=== PATIENT | female | born 1955 | race Two or more races ===

== ENCOUNTER 2016-05-25 12:13 | Emergency (ER) | payer MEDICAID ==
[~2016-05-25] VITALS: Ht 154.9 cm; Wt 83.9 kg
[2016-05-25] MEDS ORDERED: SILVER SULFADIAZINE CREAM 25 GM TUBE ONE (13:25)
[2016-05-25] MEDS ORDERED: SILVER SULFADIAZINE CREAM 25 GM TUBE TP ONE (13:30)
[2016-05-25] MEDS ORDERED: ACETAMINOPHEN ES 500 MG TABLET ONE (13:36)
[2016-05-25] MEDS ORDERED: IBUPROFEN 600 MG TABLET PO ONE ×2 (13:37→14:00)
[2016-05-25] MEDS ORDERED: ACETAMINOPHEN 325 MG TABLET PO ONE (14:00)
[2016-05-25 15:03] VITALS: BP 121/84
== END 2016-05-25 15:04 | disposition home or self-care (01) ==
LOC: ER 12:15
DX: T24.212A Burn of second degree of left thigh, initial encounter (principal); T24.211A Burn of second degree of right thigh, initial encounter; M25.512 Pain in left shoulder; M19.90 Unspecified osteoarthritis, unspecified site; X12.XXXA Contact with other hot fluids, initial encounter; Y93.89 Activity, other specified; Y92.89 Other specified places as the place of occurrence of the external cause; Y99.9 Unspecified external cause status
CPT/HCPCS: 16020; 73030; 99284; A4606; Z7610

== ENCOUNTER 2017-03-05 13:14 | Emergency (ER) | payer MEDICAID, OTHER ==
[~2017-03-05] VITALS: Ht 154.9 cm; Wt 46.0 kg
[2017-03-05 13:24] VITALS: BP 148/91
--- NOTE | 2017-03-05 13:50 | NUR ---
pelvic exam done by dr rivera assisted by me
--- NOTE | 2017-03-05 14:06 | NUR ---
Patient discharged to home in stable condition. Written and verbal after care instructions given. Patient verbalizes understanding of instruction.
== END 2017-03-05 14:07 | disposition home or self-care (01) ==
LOC: ER 13:16
DX: N76.0 Acute vaginitis (principal)
CPT/HCPCS: 99283; A4606; Z7610

== ENCOUNTER 2017-12-15 11:17 | Emergency (ER) | payer OTHER ==
[~2017-12-15] VITALS: Ht 154.9 cm; Wt 89.4 kg
[2017-12-15 11:29] VITALS: BP 135/81
[2017-12-15] MEDS ORDERED: IBUPROFEN 600 MG TABLET PO ONE ×2 (12:09→12:30)
== END 2017-12-15 13:55 | disposition home or self-care (01) ==
LOC: ER 11:18
DX: S86.811A Strain of other muscle(s) and tendon(s) at lower leg level, right leg, initial encounter (principal); S80.261A Insect bite (nonvenomous), right knee, initial encounter; W57.XXXA Bitten or stung by nonvenomous insect and other nonvenomous arthropods, initial encounter; Y93.89 Activity, other specified; Y92.89 Other specified places as the place of occurrence of the external cause; Y99.8 Other external cause status
CPT/HCPCS: 73564-TC; A4606; Z7610

== ENCOUNTER 2019-04-12 09:04 | Emergency (ER) | payer OTHER ==
[~2019-04-12] VITALS: Ht 154.9 cm; Wt 86.2 kg
--- NOTE | 2019-04-12 09:18 | NUR ---
CAME IN FOR INTERMITTENT LUQ ABD PAIN X 2 WEEKS, TO ER BED 9, HOOKED TO MONITOR, CHANGED TO HOSP GOWN, PROVIDED W WARM BLANKET, AOx 4, BREATHING EVEN AND UNLABORED, NAD NOTED. AWAITING MD AGUILERA
--- NOTE | 2019-04-12 09:34 | NUR ---
DR US AT BEDSIDE
[2019-04-12 10:14] LABS: BASOPHILS # (AUTO) 0.1 /CMM (0.0-0.2); EOSINOPHILS % (AUTO) 0.1 % (0.0-6.0); HEMATOCRIT 45 % (33-45); HEMOGLOBIN 15.3 g/dL (11.5-14.8); LYMPHOCYTES # (AUTO) 1.8 /CMM (0.8-4.8); LYMPHOCYTES % (AUTO) 28.3 % (20.0-44.0); MEAN CORPUSCULAR HGB CONC 34 g/dl (31.0-36.0); MEAN CORPUSCULAR VOLUME 88 fL (82-100); MONOCYTES # (AUTO) 0.3 /CMM (0.1-1.30); MONOCYTES % (AUTO) 5.1 % (2.0-12.0); NEUTROPHILS # (AUTO) 4.2 /CMM (1.8-8.9); NEUTROPHILS % (AUTO) 65.5 % (43.0-81.0); PLATELET COUNT (AUTO) 453 /CMM (150-450); RED BLOOD CELL COUNT(AUTO) 5.11 MIL/uL (4.0-5.2); WHITE BLOOD COUNT (AUTO) 6.3 K/uL (4.3-11.0)
[2019-04-12 10:25] LABS: CALCIUM, SERUM 9.5 mg/dL (8.5-10.1); CARBON DIOXIDE 29 mmol/L (21-32); CHLORIDE 106 mmol/L (98-107); GLUCOSE 100 mg/dL (74-106); POTASSIUM 4.5 mmol/L (3.5-5.1); SODIUM SERUM 142 mmol/L (136-145); UREA NITROGEN, BLOOD 13 mg/dL (7-18)
[2019-04-12 10:37] LABS: ALANINE AMINOTRANSFERASE 65 U/L (12-78); ALBUMIN 3.4 g/dL (3.4-5.0); ALKALINE PHOSPHATASE 121 U/L (46-116); ASPARTATE AMINOTRANSFERASE 55 U/L (15-37); BILIRUBIN,DIRECT 0.1 mg/dL (0.0-0.2); BILIRUBIN,TOTAL 0.3 mg/dL (0.2-1.0); LIPASE 171 U/L (73-393); TOTAL PROTEIN, SERUM 8.1 g/dL (6.4-8.2)
[2019-04-12] MEDS ORDERED: MAG HYDROX/AL HYDROX/SIMETH 30 ML UDC ONE (10:41)
[2019-04-12] MEDS ORDERED: LIDOCAINE VISCOUS 2% UD 15 ML UDC ONE (10:41)
[2019-04-12 10:54] LABS: APPEARANCE,URINE Clear (CLEAR); BILIRUBIN,URINE Negative (NEGATIVE); BLOOD, URINE Moderate Ery/uL (NEGATIVE); COLOR,URINE Yellow (YELLOW); KETONES,URINE Negative (NEGATIVE); LEUKOCYTE ESTERASE ,URINE Small (NEGATIVE); NITRITE, URINE Negative (NEGATIVE); PH,URINE 8.5 (5.0-8.0); PROTEIN,URINE Negative (NEGATIVE); UGLUCOSE Negative (NEGATIVE); UROBILINOGEN,URINE 0.2 EU/dL (0.2)
[2019-04-12] MEDS ORDERED: MAG HYDROX/AL HYDROX/SIMETH 30 ML UDC PO ONE (11:00)
[2019-04-12] MEDS ORDERED: LIDOCAINE VISCOUS 2% UD 15 ML UDC MM ONE (11:00)
[2019-04-12 11:16] LABS: BACTERIA,URINE Few /HPF (None Seen); SQUAMOUS EPITHELIAL CELL,UR Moderate /HPF (None Seen); WBC,URINE 21-50 /HPF (0-3)
[2019-04-12] MEDS ORDERED: CEPHALEXIN MONOHYDRATE 500 MG CAPSULE PO ONE ×2 (11:58→12:00)
--- NOTE | 2019-04-12 12:05 | NUR ---
IV removed. Catheter intact and site benign. Pressure and 4x4 applied to site. No bleeding noted.Patient discharged to home in stable condition. Written and verbal after care instructions given. Patient verbalizes understanding of instruction.
[2019-04-12 12:07] VITALS: BP 126/68
== END 2019-04-12 12:08 | disposition home or self-care (01) ==
LOC: ER 09:04
DX: N39.0 Urinary tract infection, site not specified (principal); R10.12 Left upper quadrant pain; H61.23 Impacted cerumen, bilateral
CPT/HCPCS: 36415; 80048-TC; 80076-TC; 81000-TC; 83690-TC; 84484-TC; 85025-TC; 87086-TC; 87186-TC

== ENCOUNTER 2024-07-09 08:31 | Emergency (ER) | payer MEDICARE, OTHER ==
[~2024-07-09] VITALS: Ht 152.4 cm; Wt 90.7 kg
[2024-07-09] MEDS: IV NS 0.9% 1,000 ML BAG IV ONE (09:00)
[2024-07-09 09:18] LABS: BASOPHILS # (AUTO) 0.1 K/uL (0.0-0.2); BASOPHILS % (AUTO) 1.1 % (0.0-2.0); EOSINOPHILS # (AUTO) 0.1 K/uL (0.0-0.7); HEMATOCRIT 45 % (33-45); HEMOGLOBIN 14.9 g/dL (11.5-14.8); LYMPHOCYTES # (AUTO) 2.2 K/uL (0.8-4.8); LYMPHOCYTES % (AUTO) 41.8 % (20.0-44.0); MEAN CORPUSCULAR HEMOGLOBIN 29 PG (26.0-33.0); MEAN CORPUSCULAR HGB CONC 33 g/dl (31.0-36.0); MEAN CORPUSCULAR VOLUME 88 fL (82-100); MONOCYTES # (AUTO) 0.3 K/uL (0.1-1.30); MONOCYTES % (AUTO) 6.3 % (2.0-12.0); NEUTROPHILS # (AUTO) 2.6 K/uL (1.8-8.9); NEUTROPHILS % (AUTO) 49.8 % (43.0-81.0); PLATELET COUNT (AUTO) 279 K/uL (150-450); RED BLOOD CELL COUNT(AUTO) 5.12 MIL/uL (4.0-5.2); WHITE BLOOD COUNT (AUTO) 5.3 K/uL (4.3-11.0)
[2024-07-09 09:19] LABS: CALCIUM, SERUM 9.4 mg/dL (8.5-10.1); CARBON DIOXIDE 28 mmol/L (21-32); CHLORIDE 107 mmol/L (98-107); CREATININE 0.7 mg/dL (0.6-1.3); POTASSIUM 4.2 mmol/L (3.5-5.1); SODIUM SERUM 139 mmol/L (136-145)
[2024-07-09 09:29] LABS: GLUCOSE 110 mg/dL (74-106); UREA NITROGEN, BLOOD 15 mg/dL (7-18)
[2024-07-09] MEDS: ONDANSETRON HCL/PF 4 MG/2 ML VIAL IV ONE (09:30)
[2024-07-09] MEDS: MECLIZINE HCL 12.5 MG TABLET PO ONE (09:30)
[2024-07-09 09:52] LABS: MAGNESIUM 2.2 mg/dL (1.8-2.4); PHOSPHORUS 3.4 mg/dL (2.5-4.9)
[2024-07-09] MEDS ORDERED: ONDANSETRON HCL/PF 4 MG/2 ML VIAL ONE (10:03)
[2024-07-09] MEDS ORDERED: MECLIZINE HCL 25 MG TABLET ONE (10:03)
[2024-07-09] MEDS ORDERED: ONDA4TAB5 PO (11:11)
[2024-07-09] MEDS ORDERED: MECL-182 PO (11:11)
[2024-07-09 11:18] VITALS: BP 126/59; TEMP 98.3; O2SAT 99
[2024-07-09 12:16] LABS: THYROID STIMULATING HORMONE 2.47 uIU/mL (0.358-3.74)
== END 2024-07-09 11:19 | disposition home or self-care (01) ==
LOC: ER 08:48
DX: R42 Dizziness and giddiness (principal); R11.0 Nausea; E78.5 Hyperlipidemia, unspecified; Z79.899 Other long term (current) drug therapy
CPT/HCPCS: 99285; 96374; 70450; 71045; 96361; 93005; 85025; 80048; 83735; 84100; 36415; 84443; 84484; 83880; J8597; J2405; J7030